=== PATIENT | male | born 1990 | race American Indian/Alaskan Native ===

== ENCOUNTER 2018-10-28 09:30 | Emergency (ER) | payer SELFPAY ==
[2018-10-28 09:46] VITALS: BP 145/83
[2018-10-28] MEDS ORDERED: TORADOL IV ONE (10:03)
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
== END 2018-10-28 12:28 | disposition home or self-care (01) ==
LOC: ED 09:30
DX: S16.1XXA Strain of muscle, fascia and tendon at neck level, initial encounter (principal); S39.012A Strain of muscle, fascia and tendon of lower back, initial encounter; S06.0X1A Concussion with loss of consciousness of 30 minutes or less, initial encounter; Z79.899 Other long term (current) drug therapy; V49.50XA Passenger injured in collision with unspecified motor vehicles in traffic accident, initial encounter; Y93.89 Activity, other specified; Y92.410 Unspecified street and highway as the place of occurrence of the external cause; Y99.8 Other external cause status
CPT/HCPCS: 70450; 72100; 72125; 96374; 99284; J1885